=== PATIENT | female | born 1990 | race Caucasian/White ===

== ENCOUNTER 2018-08-20 10:57 | Emergency (ER) | payer OTHER ==
[2018-08-20 11:46] VITALS: BP 121/70
--- NOTE | 2018-08-20 12:09 | UC ---
UC General HPI - HPI Summary HPI Summary: N/V AND FEVER WITH tMAX 101 LAST PM. N/V RESOLVED. SON HAD FLU. PT WANTS TO EXCLUDE THE FLU. 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 NO DIARRHEA. GOOD ORAL INTAKE THIS AM WITH NO V/D. - History of Current Complaint Chief Complaint: UCRespiratory Stated Complaint: VOMITTING,FEVER, FLU EXP Time Seen by Provider: 08/20/18 12:04 Hx Obtained From: Patient Hx Last Menstrual Period: unknown Pain Intensity: 0 Associated Signs & Symptoms: Negative: Abdominal Pain - Allergy/Home Medications Allergies/Adverse Reactions: Allergies Allergy/AdvReac Type Severity Reaction Status Date / Time No Known Allergies Allergy Verified 08/20/18 11:42 Home Medications: Home Medications Dextroamphetamine/Amphetamine [Adderall Xr 20 mg Capsule] 20 mg PO SEE INSTRUCTIONS 08/20/18 [History Confirmed 08/20/18] Levonorgestrel (Iud) [Mirena IUD] 20 mcg INTRAUTERI ONCE 08/20/18 [History Confirmed 08/20/18] PMH/Surg Hx/FS Hx/Imm Hx - Additional Past Medical History Additional PMH: ADD - Surgical History Surgical History: Yes Surgery Procedure, Year, and Place: ACL. septoplasty. - Social History Lives: With Family Alcohol Use: Occasionally Substance Use Type: None Smoking Status (MU): Never Smoked Tobacco Review of Systems All Other Systems Reviewed And Are Negative: Yes Constitutional: Positive: Fever Skin: Positive: Negative Eyes: Positive: Negative ENT: Positive: Negative Respiratory: Positive: Negative Cardiovascular: Positive: Negative Gastrointestinal: Positive: Vomiting, Nausea Genitourinary: Positive: Negative Motor: Positive: Negative Neurovascular: Positive: Negative Musculoskeletal: Positive: Negative Neurological: Positive: Negative Psychological: Positive: Negative Physical Exam Triage Information Reviewed: Yes Appearance: Well-Appearing Vital Signs: Initial Vital Signs Temp 97.9 F 08/20/18 11:43 Pulse 89 08/20/18 11:43 Resp 15 08/20/18 11:43 BP 121/70 08/20/18 11:43 Pulse Ox 99 08/20/18 11:43 Vital Signs Reviewed: Yes Eyes: Positive: Conjunctiva Clear ENT: Positive: Pharynx normal, TMs normal. Negative: Nasal congestion, Nasal drainage Neck: Positive: Supple, Nontender, No Lymphadenopathy Respiratory: Positive: Lungs clear, Normal breath sounds, No respiratory distress Cardiovascular: Positive: RRR, No Murmur Abdomen Description: Positive: Nontender, No Organomegaly, Soft. Negative: CVA Tenderness (R), CVA Tenderness (L), Distended, Guarding Bowel Sounds: Positive: Present Musculoskeletal: Positive: ROM Intact Neurological: Positive: Alert Psychological: Positive: Age Appropriate Behavior Skin Exam: Normal Skin: Negative: Rashes Diagnostics - Laboratory Diagnostic Studies Completed/Ordered: RAPID FLU=NEGATIVE Course/Dx - Course Course Of Treatment: NON TOXIC, NO ACUTE ABDOMEN, FEVER/N/V RESOLVED. - Differential Dx - Multi-Symptom Differential Diagnoses: Other - INFLUENZA, VIRAL SUNDROM - Diagnoses Provider Diagnosis: Viral syndrome Discharge - Sign-Out/Discharge Documenting (check all that apply): Patient Departure All imaging exams completed and their final reports reviewed: No Studies - Discharge Plan Condition: Stable Disposition: HOME Patient Education Materials: Viral Syndrome (ED) Referrals: Leah Velazquez MD [Primary Care Provider] - If Needed - Billing Disposition and Condition Condition: STABLE Disposition: Home
[2018-08-20 12:30] LABS: Influenza A Molecular NEGATIVE (Negative); Influenza B Molecular NEGATIVE (Negative)
== END 2018-08-20 12:27 | disposition home or self-care (01) ==
LOC: UCCORT 10:57
DX: B34.9 Viral infection, unspecified (principal); R11.2 Nausea with vomiting, unspecified
CPT/HCPCS: 99211; G0463